=== PATIENT | female | born 1990 | race Caucasian/White ===

== ENCOUNTER → 2016-07-18 | Outpatient (REF) | payer OTHER | LOC: M LAB REF 12:49 | PROVIDERS: ATTEND Advanced Practice Midwife | DX: Z34.83 Encounter for supervision of other normal pregnancy, third trimester (principal) ==

== ENCOUNTER → 2016-07-19 | Outpatient (CLI) | payer OTHER ==
--- NOTE | 2016-07-20 10:31 | REP ---
Obstetric sonography: History: 36 weeks plus. growth study. Comparison exam March 25, 2016. Findings: Scanning through the gravid uterus demonstrates a viable single intrauterine gestation in a cephalic lie. motion is observed and heart rate is recorded at 153 beats per minute. A posterior grade 0 placenta is seen without evidence of previa or abruption. Amniotic fluid is subjectively normal. There has been less than expected interval growth. Umbilical cord is seen draping across the shoulders. Biometry chart: BPD 8.4 cm = 34 weeks 0 days HC 32.5 cm = 36 weeks 5 days AC 30.6 cm = 34 weeks 4 days FL 6.4 cm = 33 weeks 0 days HL 5.9 cm = 34 weeks 0 days HC/AC ratio normal 1.1. Cephalic index normal 0.7. Estimated weight 2393 grams, 5 pounds 4 ounces, 17th percentile for 36 weeks 3 days. HARSH normal 9.9 cm. S/D ratio in the umbilical cord artery by Doppler normal 2.28. Impression: Viable single intrauterine gestation at 34 weeks 3 days by today's composite criteria. Expected gestational age estimate based on prior sonography is 35 weeks 5 days. GRICELDA by prior sonography August 18, 2016. Somewhat less than expected interval growth. Signed by John Gill MD 07/20/2016 11:05 A
== END ==
LOC: M RAD 16:31
PROVIDERS: ATTEND Advanced Practice Midwife
DX: O26.843 Uterine size-date discrepancy, third trimester (principal); Z3A.34 34 weeks gestation of pregnancy

== ENCOUNTER 2016-08-06 14:15 | Inpatient (IN) | payer OTHER ==
[~2016-08-06] VITALS: Ht 162.6 cm; Wt 64.0 kg
[2016-08-06 14:41] VITALS: BP 107/65
[2016-08-06] MEDS ORDERED: PRENTAB9 PO (14:46)
[2016-08-06] MEDS ORDERED: LACTATED RINGER'S 1000 ML IV STA (15:14)
[2016-08-06] MEDS ORDERED: LR 1,000 ML IV SCH ×2 (15:14→23:35)
[2016-08-06 15:27] LABS: MEAN CORPUSCULAR HEMOGLOBIN 31.6 pg (27.0-33.0); MEAN CORPUSCULAR HGB CONC 35.3 g/dl (32.0-36.5); MEAN CORPUSCULAR VOLUME 89.7 fl (80.0-96.0); RED CELL DISTRIBUTION WIDTH 12.5 % (11.5-14.5); WHITE BLOOD COUNT 7.9 K/mm3 (4.0-10.0)
[2016-08-06] MEDS ORDERED: OXYTOCIN DRIP 30 UNITS in APPROPRIATE DILUENT 1 EA IV SCH ×2 (15:45→23:35)
[2016-08-06 15:50] VITALS: BP 103/66
[2016-08-06 16:40] VITALS: BP 108/68
[2016-08-06 17:31] VITALS: BP 108/69
[2016-08-06 18:15] VITALS: BP 108/62
[2016-08-06] MEDS ORDERED: FENTANYL 2MCG/ML ROPIVACAINE 0.2% NACL 250 ML CADD As Ordered ONE (19:33)
[2016-08-06] MEDS ORDERED: DIBUCAINE 1% OINTMENT 30GM TOP PRN (23:45)
[2016-08-06] MEDS ORDERED: RHOGAM 300 MCG (1500 IU) INJ (J2790) IM SCH (23:45)
[2016-08-06] MEDS ORDERED: PROMETHAZINE 25 MG TAB PO PRN (23:45)
[2016-08-06] MEDS ORDERED: IBUPROFEN 800 MG TAB PO PRN (23:45)
[2016-08-06] MEDS ORDERED: METHYLERGONOVINE MALEATE 0.2 MG TAB PO PRN (23:45)
[2016-08-06] MEDS ORDERED: MEASLES,MUMPS,RUBELLA VACCINE INJ (MMR-II) (90707) SC SCH (23:45)
[2016-08-06] MEDS ORDERED: DOCUSATE SODIUM 100 MG CAP PO PRN (23:45)
[2016-08-06] MEDS ORDERED: ONDANSETRON 4MG/2ML VIAL (J2405) IV PRN (23:45)
[2016-08-07 01:26] VITALS: BP 114/63
[2016-08-07 06:08] VITALS: BP 117/69
[2016-08-07] MEDS: PRENATAL VITAMIN TAB PO SCH (08:23)
[2016-08-07] MEDS: ACETAMINOPHEN 500 MG TAB PO PRN ×2 (08:25→20:21)
[2016-08-07 18:02] VITALS: BP 105/67
[2016-08-08 06:13] VITALS: BP 114/67
[2016-08-08] MEDS ORDERED: ACET50TA PO (08:29)
[2016-08-08] MEDS ORDERED: IBUP-1114 PO (08:29)
[2016-08-08] MEDS: PRENATAL VITAMIN TAB PO SCH (09:30)
== END 2016-08-08 09:50 | disposition home or self-care (01) | DRG 775 ==
LOC: M LDI 14:15 → M OBS 08-07 01:17
PROVIDERS: ADMIT Obstetrics & Gynecology; ATTEND Obstetrics & Gynecology
PROC: 10E0XZZ Delivery of Products of Conception, External Approach (ICD-10-PCS; principal; 2016-08-06)
PROC: 10907ZC Drainage of Amniotic Fluid, Therapeutic from Products of Conception, Via Natural or Artificial Opening (ICD-10-PCS; 2016-08-06)
DX: O69.2XX0 Labor and delivery complicated by other cord entanglement, with compression, not applicable or unspecified (principal); Z37.0 Single live birth; Z3A.39 39 weeks gestation of pregnancy